=== PATIENT | male | born 1960 | race Caucasian/White ===

== ENCOUNTER → 2018-09-20 | Outpatient (CLI) | payer OTHER ==
[~2018-09-20] MED LIST: NOHOMEMEDICATIONS
== END ==
LOC: M.RAD 08:57
DX: S59.902D Unspecified injury of left elbow, subsequent encounter (principal); M25.421 Effusion, right elbow; X58.XXXD Exposure to other specified factors, subsequent encounter

== ENCOUNTER 2021-05-04 07:15 | Emergency (ER) | payer OTHER ==
[~2021-05-04] VITALS: Ht 172.7 cm; Wt 83.9 kg
[2021-05-04] MEDS ORDERED: HYDROCODON-ACE1 EAC7 PO (08:30)
[2021-05-04] MEDS ORDERED: PREDNISONE 20 M20 M1 PO (08:30)
[2021-05-04 08:41] VITALS: BP 130/76
--- NOTE | 2021-05-05 10:39 | EKG ---
[place] [address] ELECTROCARDIOGRAM REPORT Name: JOAN JACKSON Room: [facility]#: [id number] Admission: 05/04/21 Attend Phys: Discharge: 05/04/21 Date of : 60 Date of Service: 05/04/21 0740 Report #: [id number] THIS REPORT FOR: //name// [facility] ED Test Date: 2021-05-04 Test Time: 07:40:35 Pat Name: JOAN JACKSON Department: Room: Gender: Plant Technician/Control Room Operator: CRISTOFER : 1960 Requested By: Oleg Saleem Order Number: [id number] MD: Joan Underwood Measurements Intervals Vera Rate: 71 P: 41 CT: 183 QRS: -34 QRSD: 101 T: 39 QT: 403 QTc: 438 Interpretive Statements Sinus rhythm Probable left atrial enlargement Incomplete RBBB and LAFB Abnormal R-wave progression, late transition No previous ECG available for comparison Electronically Signed On 05-05-2021 10:39:27 CDT by Joan Underwood [email or web address] <ELECTRONICALLY SIGNED> By: Joan Underwood MD, [facility] 05/05/21 1039 0740 0740 Joan Underwood MD, [facility] /EPI
== END 2021-05-04 08:42 | disposition home or self-care (01) ==
LOC: M.ERS 07:15
DX: M79.672 Pain in left foot (principal); Z90.49 Acquired absence of other specified parts of digestive tract